=== PATIENT | male | born 1980 | race Caucasian/White ===

== ENCOUNTER 2016-12-02 09:31 | Inpatient (IN) | payer MEDICAID ==
[~2016-12-02] VITALS: Ht 190.5 cm; Wt 127.0 kg
[2016-12-02 10:36] LABS: BASOPHIL % 0.4 % (0-2); PLATELET COUNT 130 x10^3mcL (130-400)
[2016-12-02 10:36] LABS: AMPHETAMINE QUAL UR NONE DETECTED (NEG <=1000)
[2016-12-02 10:37] LABS: RED CELL DISTRIBUTION WIDTH 15.2 % (11.5-14.5)
[2016-12-02 10:49] LABS: CALCIUM 8.8 mg/dL (8.5-10.1); CARBON DIOXIDE 23.7 mmol/L (21-32); CREATININE SERUM 1.9 mg/dL (0.7-1.3)
[2016-12-02 10:53] LABS: BILIRUBIN TOTAL 1.4 mg/dL (0.20-1.00)
[2016-12-02 10:54] LABS: ALBUMIN 3.1 g/dL (3.4-5.0)
[2016-12-02 11:55] LABS: UA SPECIFIC GRAVITY 1.025 (1.005-1.035); microscopic required? YES; urine erythrocyte 3+ (NEGATIVE)
[2016-12-02 12:09] LABS: MAGNESIUM 2.4 mg/dL (1.8-2.4); PHOSPHOROUS 4.2 mg/dL (2.5-4.9)
[2016-12-02 12:10] LABS: T3 TOTAL 0.69 ng/mL
[2016-12-02 12:31] LABS: FREE T4 1.11 ng/dL (0.76-1.46); FREE THYROXINE INDEX 2.8 ug/dL (1.4-4.5); T4(THYROXINE) 7.9 ug/dL (4.7-13.3)
[2016-12-02 12:53] VITALS: BP 156/99
[2016-12-02 13:30] VITALS: BP 156/99
[2016-12-02 15:18] VITALS: BP 156/99
[2016-12-02 16:50] VITALS: Ht 190.5 cm; Wt 127.0 kg
[2016-12-02 17:45] VITALS: BP 172/118
[2016-12-02 19:03] VITALS: BP 141/92
[2016-12-02 20:45] VITALS: BP 140/87
[2016-12-03 06:00] LABS: BASOPHIL % 0.2 % (0-2)
[2016-12-03 06:15] LABS: PLATELET COUNT 83 x10^3mcL (130-400); RED CELL DISTRIBUTION WIDTH 15.4 % (11.5-14.5)
[2016-12-03 06:27] LABS: CALCIUM 7.9 mg/dL (8.5-10.1); CARBON DIOXIDE 25.4 mmol/L (21-32); CHLORIDE SERUM 112 mmol/L (98-107); CREATININE SERUM 1.4 mg/dL (0.7-1.3); GFR1 > 60 mL/min; GLUCOSE SERUM 82 mg/dL (74-106); MAGNESIUM 2.1 mg/dL (1.8-2.4); PHOSPHOROUS 3.1 mg/dL (2.5-4.9); POTASSIUM SERUM 3.7 mmol/L (3.5-5.1); SODIUM SERUM 147 mmol/L (136-145)
[2016-12-03 09:45] VITALS: BP 137/68
[2016-12-03 09:49] VITALS: BP 138/87
[2016-12-03 14:25] VITALS: BP 133/66
[2016-12-03 17:16] VITALS: BP 138/91
[2016-12-03 21:03] VITALS: BP 128/79
[2016-12-04 06:00] LABS: BASOPHIL % 0.6 % (0-2)
[2016-12-04 06:21] LABS: CALCIUM 7.6 mg/dL (8.5-10.1); CARBON DIOXIDE 25.4 mmol/L (21-32); CHOLESTEROL/HDL RATIO 3.4; CREATININE SERUM 1.5 mg/dL (0.7-1.3); MAGNESIUM 2.1 mg/dL (1.8-2.4); PHOSPHOROUS 3.3 mg/dL (2.5-4.9); POTASSIUM SERUM 3.8 mmol/L (3.5-5.1)
[2016-12-04 06:32] LABS: PLATELET COUNT 80 x10^3mcL (130-400); RED CELL DISTRIBUTION WIDTH 15.8 % (11.5-14.5)
[2016-12-04 09:40] VITALS: BP 126/78
[2016-12-04 13:57] VITALS: BP 132/89
[2016-12-04 16:58] VITALS: BP 106/67
[2016-12-05 06:31] LABS: CARBON DIOXIDE 26.5 mmol/L (21-32); CREATININE SERUM 1.5 mg/dL (0.7-1.3); POTASSIUM SERUM 3.6 mmol/L (3.5-5.1)
[2016-12-05 06:48] LABS: BASOPHIL % 0.6 % (0-2)
[2016-12-05 06:57] LABS: PLATELET COUNT 89 x10^3mcL (130-400); RED CELL DISTRIBUTION WIDTH 15.6 % (11.5-14.5)
[2016-12-05 09:34] VITALS: BP 123/79
[2016-12-05] MEDS ORDERED: LEVOFLOXACIN500 M1 PO ×2 (11:05→18:38)
[2016-12-05] MEDS ORDERED: CLEOCIN HCL300 MG PO ×2 (11:06→18:38)
[2016-12-05] MEDS ORDERED: LAC PO ×2 (11:06→18:38)
[2016-12-05 14:41] VITALS: BP 119/77
[2016-12-05 18:20] VITALS: BP 119/77
== END 2016-12-05 20:00 | disposition home or self-care (01) | DRG 812 ==
LOC: ED 09:31 → DU 11:25
PROVIDERS: Emergency Medicine; Student in an Organized Health Care Education/Training Program; ADMIT Family Medicine
PROC: 0HBMXZZ Excision of Right Foot Skin, External Approach (ICD-10-PCS; principal; 2016-12-02)
DX: T40.7X1A Poisoning by cannabis (derivatives), accidental (unintentional), initial encounter (principal); N17.0 Acute kidney failure with tubular necrosis; G92 Toxic encephalopathy; E87.0 Hyperosmolality and hypernatremia; D69.59 Other secondary thrombocytopenia; E44.0 Moderate protein-calorie malnutrition; K70.30 Alcoholic cirrhosis of liver without ascites; L03.115 Cellulitis of right lower limb; N18.3 Chronic kidney disease, stage 3 (moderate); F31.2 Bipolar disorder, current episode manic severe with psychotic features; L97.511 Non-pressure chronic ulcer of other part of right foot limited to breakdown of skin; I12.9 Hypertensive chronic kidney disease with stage 1 through stage 4 chronic kidney disease, or unspecified chronic kidney disease; I16.0 Hypertensive urgency; F12.10 Cannabis abuse, uncomplicated; F10.10 Alcohol abuse, uncomplicated; E86.0 Dehydration; K80.20 Calculus of gallbladder without cholecystitis without obstruction; K74.60 Unspecified cirrhosis of liver; E78.5 Hyperlipidemia, unspecified; E66.9 Obesity, unspecified; Z68.35 Body mass index [BMI] 35.0-35.9, adult; Z59.0 Homelessness; Y92.9 Unspecified place or not applicable
CPT/HCPCS: 84439; G0480; J1956; J2001; J3490; J7030; Q0092